=== PATIENT | female | born 1970 | race Caucasian/White ===

== ENCOUNTER 2017-05-30 17:20 | Emergency (ER) | payer MEDICAID ==
[2017-05-30 17:33] VITALS: BP 119/84; PULSE 89; RESP 18; TEMP 98.4; O2SAT 97
--- NOTE | 2017-05-30 18:04 | EDPHY ---
H & P Stated Complaint: right foot pain, possible fb, started 2 days ago Time Seen by Provider: 05/30/17 17:55 HPI/ROS: CHIEF COMPLAINT: Concern for foreign body HISTORY OF PRESENT ILLNESS: The patient is a 46-year-old female with a history of MS who comes to the emergency department concerned that there is foreign body in her foot. She thinks she stepped on a piece of glass a few days ago. Yesterday she presented to the [facility] ([place], [place]). There they performed an x- ray and ultrasound of the area of concern and not find any evidence of foreign body. The patient states that she is still having pain and that today the scab fell off. She does not really remember when the injury happened but does not think that she stepped on something the punctured her shoe sole. REVIEW OF SYSTEMS: Constitutional: denies: chills, fever, recent illness, recent injury EENTM: denies: blurred vision, double vision, nose congestion Respiratory: denies: cough, shortness of breath Cardiac: denies: chest pain, irregular heart rate, lightheadedness, palpitations Gastrointestinal/Abdominal: denies: abdominal pain, diarrhea, nausea, vomiting, blood streaked stools Genitourinary: denies: dysuria, frequency, hematuria, pain Musculoskeletal: denies: joint pain, muscle pain Skin: See HPI Neurological: denies: headache, numbness, paresthesia, tingling, dizziness, weakness Hematologic/Lymphatic: denies: blood clots, easy bleeding, easy bruising Immunologic/allergic: denies: HIV/AIDS, transplant EXAM: GENERAL: Well-appearing, well-nourished and in no acute distress. HEAD: Atraumatic, normocephalic. EYES: Pupils equal round and reactive to light, extraocular movements intact, sclera anicteric, conjunctiva are normal. ENT: TMs normal, nares patent, oropharynx clear without exudates. Moist mucous membranes. NECK: Normal range of motion, supple without lymphadenopathy or JVD. LUNGS: Breath sounds clear to auscultation bilaterally and equal. No wheezes rales or rhonchi. HEART: Regular rate and rhythm without murmurs, rubs or gallops. ABDOMEN: Soft, nontender, normoactive bowel sounds. No guarding, no rebound. No masses appreciated. BACK: No CVA tenderness, no spinal tenderness, step-offs or deformities EXTREMITIES: Normal range of motion, no pitting or edema. No clubbing or cyanosis. NEUROLOGICAL: Cranial nerves II through XII grossly intact. Normal speech, normal gait. 5/5 strength, normal movement in all extremities, normal sensation PSYCH: Normal mood, normal affect. SKIN: Small 2-3 mm ulceration in the bottom of her right foot at the pin foot. No erythema or warmth. No discharge. Moderate pain to palpation. Source: Patient Exam Limitations: No limitations - Personal History LMP (Females 10-55): 22-28 Days Ago Current Tetanus Diphtheria and Acellular Pertussis (TDAP): Yes Tetanus Vaccine Date: within 10 yrs - Medical/Surgical History Hx Asthma: No Hx Chronic Respiratory Disease: No Hx Diabetes: No Hx Cardiac Disease: No Hx Renal Disease: No Hx Cirrhosis: No Other PMH: MS, neuropathy, anxiety, panic disorder, PTSD, - Family History Significant Family History: No pertinent family hx - Social History Smoking Status: Never smoked Alcohol Use: Sober Constitutional: Initial Vital Signs Temperature (C) 36.9 C 05/30/17 17:28 Heart Rate 89 05/30/17 17:28 Respiratory Rate 18 05/30/17 17:28 Blood Pressure 119/84 H 05/30/17 17:28 O2 Sat (%) 97 05/30/17 17:28 O2 Delivery Mode Room Air Allergies/Adverse Reactions: erythromycin base [Erythromycin Base] Allergy (Intermediate, Verified 05/30/17 17:27) Penicillins Allergy (Intermediate, Verified 05/30/17 17:27) cephalexin Allergy (Verified 05/30/17 17:27) hydrocodone Allergy (Verified 05/30/17 17:27) prochlorperazine [From Compazine] Allergy (Verified 05/30/17 17:27) Home Medications: Medication Instructions Recorded Ambien 05/30/17 Cyclobenzaprine 05/30/17 Neurontin 05/30/17 Trazodone HCl 05/30/17 Medical Decision Making ED Course/Re-evaluation: I do not see any evidence of foreign body or infection. The patient has a small ulcer/puncture wound to the bottom or foot that appears to be healing well. She is on clindamycin prescribed to her by [facility]. I reassured her that I do not suspect a foreign body and that it does not appear to be infected. At this point we agreed not to perform any further imaging studies. She is complaining of pain when she walks. We will bandage it with a donut keep some of the pressure off. She is happy with this plan and declines further workup or testing at this time. Differential Diagnosis: Partial list of the Differential diagnosis considered include but were not limited to; puncture wound, foreign body, ulceration and although unlikely based on the history and physical exam, I also considered wound infection, osteomyelitis, plantar fasciitis. I discussed these differential diagnoses and the plan with the patient as well as the usual and expected course. The patient understands that the diagnosis is provisional and that in medicine we are not always correct and that further workup is often warranted. Usual and customary warnings were given. All of the patient's questions were answered. The patient was instructed to return to the emergency department should the symptoms at all worsen or return, otherwise to followup with the physician as we discussed. Departure - Departure Disposition: Home, Routine, Self-Care Clinical Impression: Puncture wound of right foot Qualifiers: Encounter type: initial encounter Qualified Code(s): S91.331A - Puncture wound without foreign body, right foot, initial encounter Condition: Fair Instructions: Puncture Wound (ED) Referrals: NONE *PRIMARY CARE P,. [Primary Care Provider] - As per Instructions
== END 2017-05-30 18:12 | disposition home or self-care (01) ==
LOC: CED 17:20
DX: S91.311A Laceration without foreign body, right foot, initial encounter (principal); W25.XXXA Contact with sharp glass, initial encounter

== ENCOUNTER 2018-05-19 17:31 | Emergency (ER) | payer MEDICAID ==
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
[2018-05-19 19:39] VITALS: BP 153/96
== END 2018-05-19 19:40 | disposition home or self-care (01) ==
LOC: EEVIPCON 17:31
DX: F11.23 Opioid dependence with withdrawal (principal); G35 Multiple sclerosis; F43.10 Post-traumatic stress disorder, unspecified

== ENCOUNTER → 2018-06-26 | Outpatient (CLI) | payer MEDICAID | LOC: CIMAGING 19:16 | PROVIDERS: ATTEND Family Medicine | DX: R20.0 Anesthesia of skin (principal); R20.2 Paresthesia of skin; G54.0 Brachial plexus disorders | CPT/HCPCS: 71046-PO ==

== ENCOUNTER → 2018-07-03 | Outpatient (CLI) | payer MEDICAID | LOC: FIMAGING 16:08 | PROVIDERS: ATTEND Family Medicine | DX: R20.0 Anesthesia of skin (principal); R20.2 Paresthesia of skin; G54.0 Brachial plexus disorders ==